=== PATIENT | female | born 1940 ===

== ENCOUNTER 2018-12-29 15:03 | Outpatient (CLI) | payer OTHER ==
[~2018-12-29] VITALS: Ht 160 cm; Wt 83.0 kg
== END 2018-12-29 15:20 | disposition home or self-care (01) ==
LOC: OFIC 805 15:03
DX: H61.21 Impacted cerumen, right ear (principal); H91.8X1 Other specified hearing loss, right ear

== ENCOUNTER 2019-02-05 11:05 | Outpatient (CLI) | payer OTHER ==
[~2019-02-05] VITALS: Ht 152.4 cm; Wt 83.0 kg
== END 2019-02-05 11:20 | disposition home or self-care (01) ==
LOC: OFIC 805 11:05
DX: H90.3 Sensorineural hearing loss, bilateral (principal)